=== PATIENT | female | born 1995 | race African-American/Black ===

== ENCOUNTER → 2017-07-22 10:03 | Outpatient (CLI) | payer OTHER ==
[~2017-07-22 10:03] MED LIST: ALLEGRA ALLERG180 MG PO; AMOX1TAB12 PO; LOESTRIN FE 1-1 EACH; TESSALON PERLE100 MG PO
== END | disposition home or self-care (01) ==
LOC: PPHC LAB 10:03
DX: Z01.89 Encounter for other specified special examinations (principal)

== ENCOUNTER → 2017-08-15 | Outpatient (CLI) | payer OTHER | END | disposition home or self-care (01) | LOC: PPHC 07:32 | DX: R19.5 Other fecal abnormalities (principal) ==

== ENCOUNTER 2018-05-11 15:28 | Emergency (ER) | payer OTHER ==
[~2018-05-11] VITALS: Ht 157.5 cm; Wt 53.5 kg
== END 2018-05-11 22:46 | disposition home or self-care (01) ==
LOC: ER 15:28
DX: L27.0 Generalized skin eruption due to drugs and medicaments taken internally (principal); T45.0X5A Adverse effect of antiallergic and antiemetic drugs, initial encounter

== ENCOUNTER 2018-06-28 08:50 | Outpatient (CLI) | payer OTHER | END 2018-06-28 09:05 | disposition home or self-care (01) | LOC: RAD 08:50 | DX: J32.8 Other chronic sinusitis (principal) ==

== ENCOUNTER 2018-07-30 09:10 | Outpatient (CLI) | payer OTHER | END 2018-07-30 09:15 | disposition home or self-care (01) | LOC: RAD 09:10 | DX: R05 Cough (principal) ==

== ENCOUNTER 2018-07-30 09:42 | Outpatient (CLI) | payer OTHER | END 2018-07-30 09:49 | disposition home or self-care (01) | LOC: LAB 09:42 | DX: J11.1 Influenza due to unidentified influenza virus with other respiratory manifestations (principal); J06.9 Acute upper respiratory infection, unspecified ==

== ENCOUNTER 2022-04-04 10:19 | Emergency (ER) | payer OTHER ==
[~2022-04-04] VITALS: Ht 154.9 cm; Wt 57.2 kg
[2022-04-04] MEDS ORDERED: LEXAPRO5 MG PO (10:48)
[2022-04-04] MEDS ORDERED: LO LOESTRIN FE1 EACH PO (10:48)
== END 2022-04-04 13:48 | disposition home or self-care (01) ==
LOC: ER 10:19
DX: R09.1 Pleurisy (principal); Z20.822 Contact with and (suspected) exposure to COVID-19

== ENCOUNTER 2022-04-05 11:11 | Emergency (ER) | payer OTHER ==
[~2022-04-05] VITALS: Ht 154.9 cm; Wt 57.2 kg
[~2022-04-05 11:11] MED LIST changes: +LEXAPRO5 MG PO; +LO LOESTRIN FE1 EACH PO
== END 2022-04-05 18:52 | disposition home or self-care (01) ==
LOC: ER 11:11
DX: B34.9 Viral infection, unspecified (principal); J18.9 Pneumonia, unspecified organism

== ENCOUNTER 2022-04-08 08:47 | Outpatient (CLI) | payer OTHER | END 2022-04-08 09:02 | disposition home or self-care (01) | LOC: SONOGRAMA 08:47 | PROVIDERS: ATTEND Pediatrics Pediatric Pulmonology | DX: R10.9 Unspecified abdominal pain (principal) ==